=== PATIENT | male | born 1955 | race Caucasian/White ===

== ENCOUNTER 2021-07-09 08:28 | Outpatient (CLI) | payer MEDICARE, BC | END 2021-07-09 08:29 | disposition home or self-care (01) | LOC: BICRAD 08:28 | PROVIDERS: ATTEND Internal Medicine Critical Care Medicine | DX: R06.00 Dyspnea, unspecified (principal) | CPT/HCPCS: 71046 ==

== ENCOUNTER 2021-11-14 09:41 | Outpatient (CLI) | payer MEDICARE, BC ==
[~2021-11-14 09:41] MED LIST: Iopamidol-370 76% 500 ML 1 ML ONE
== END 2021-11-14 09:42 | disposition home or self-care (01) ==
LOC: BICCT 09:41
PROVIDERS: ATTEND Internal Medicine Cardiovascular Disease
DX: R07.9 Chest pain, unspecified (principal)
CPT/HCPCS: 71260; 82565; Q9967